=== PATIENT | female | born 1975 | race Caucasian/White ===

== ENCOUNTER 2017-04-18 22:07 | Emergency (ER) | payer SELFPAY ==
[2017-04-18 22:28] VITALS: TEMP 97.7; O2SAT 98
[2017-04-18] MEDS ORDERED: levETIRAcetam 250 MG TAB PO ONE (22:31)
[2017-04-18] MEDS ORDERED: PHENYTOIN SODIUM 100 MG CAP PO ONE (22:32)
--- NOTE | 2017-04-18 22:35 | ED.PDOC ---
History of Present Illness - General Chief Complaint: Neuro Symptoms/Deficits Stated Complaint: seizures today (out of meds), left breast wound Time Seen by Provider: 04/18/17 22:23 Source: patient, RN notes reviewed, Vital Signs reviewed Exam Limitations: no limitations - History of Present Illness Initial Comments: Patient comes in with c/o of being out of her seizure medications for ~1 week. She has had a few seizures in the past week but reports when she is on her medications she is seizure free. She also have a small, open wound on her L breast that has been there for several weeks and is leaking clear fluid. Timing/Duration: 1 week, episodic Severity: moderate Improving Factors: medication Worsening Factors: nothing Associated Symptoms: seizures Allergies/Adverse Reactions: Allergies NO KNOWN ALLERGY Allergy (Verified 04/18/17 22:28) Home Medications: Ambulatory Orders Phenytoin Sodium Extended 300 mg PO DAILY@0700 06/24/16 Phenytoin Sodium Extended 400 mg PO BEDTIME 06/24/16 Levetiracetam [Keppra] 1,000 mg PO BEDTIME 04/18/17 Levetiracetam [Keppra] 500 mg PO AC 04/18/17 Levetiracetam [Keppra] 500 mg PO BID #90 tab 04/18/17 Phenytoin Sodium Cap [Dilantin Cap] 100 mg PO BID #210 cap 04/18/17 Review of Systems - Review of Systems Constitutional: States: no symptoms reported EENTM: States: no symptoms reported Respiratory: States: no symptoms reported Cardiology: States: no symptoms reported Gastrointestinal/Abdominal: States: no symptoms reported Musculoskeletal: States: no symptoms reported Skin: States: see HPI Neurological: States: see HPI, seizure All other Systems: No Change from Baseline Past Medical History (General) - Patient Medical History Hx Seizures: Yes Hx Stroke: No Hx Dementia: No Hx Asthma: No Hx of COPD: No Hx Cardiac Disorders: No Hx Congestive Heart Failure: No Hx Pacemaker: No Hx Hypertension: Yes Hx Thyroid Disease: No Hx Diabetes: Yes Hx Gastroesophageal Reflux: No Hx Renal Disease: No Hx Cancer: No Hx of HIV: No Hx Hepatitis C: No Hx MRSA: No Surgical History: no surgical history - Vaccination History Hx Tetanus, Diphtheria Vaccination: No Hx Influenza Vaccination: No Hx Pneumococcal Vaccination: No Immunizations Up to Date: No - Social History Hx Tobacco Use: Yes Cigarettes Packs Per Day: 1 Hx Chewing Tobacco Use: No Hx Alcohol Use: No Hx Substance Use: No Hx Substance Use Treatment: No Hx Depression: Yes Feels Threatened In Home Enviroment: No Feels Threatened In a Relationship: No Hx Physical Abuse: No Hx Emotional Abuse: No Hx Suspected Abuse: No - Female History Patient : No Family Medical History - Family History Mother Family History: Unknown Living Status: Still Living Physical Exam - Physical Exam General Appearance: Alert, Comfortable, No apparent distress, Obese, Well Developed, Well Groomed, Well Hydrated, Well Nourished ENT Exam: pharynx normal Neck: non-tender, full range of motion, supple, normal inspection Respiratory: lungs clear, normal breath sounds, no respiratory distress, no accessory muscle use Cardiovascular/Chest: regular rate, rhythm, no gallop, no murmur 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 No tenderness, warmth or induration Comments: Vital Signs 04/18/17 22:24 Temperature 97.7 F Pulse Rate [ 106 H monitor] Respiratory 18 Rate Blood Pressure 169/99 [Left Arm] O2 Sat by Pulse 98 Oximetry Progress - Progress Progress: 04/18/17 22:37 Will give her usual PM doses of Dilantin and Kepra. Advised that breast wound is most likely taking a long time to heal due to her diabetes with she is not treating at this time. Wound shows no signs of infection. Recommended time and hot compresses. Encouraged to get a new Doctor to manage her health issues which are not being managed at this time. - EKG/XRAY/CT CT Ordered: No Departure - Departure Clinical Impression: Generalized seizure disorder Open wound of left breast without complication Qualifiers: Encounter type: initial encounter Qualified Code(s): S21.002A - Unspecified open wound of left breast, initial encounter Time of Disposition: 22:40 Disposition: Discharge to Home or Self Care Condition: Good Departure Forms: ED Discharge - Pt. Copy, Patient Portal Self Enrollment Instructions: DI for Seizure Disorder -- Adult Diet: resume usual diet Activity: increase activity as tolerated Prescriptions: Levetiracetam [Keppra] 500 mg PO BID #90 tab Phenytoin Sodium Cap [Dilantin Cap] 100 mg PO BID #210 cap Home Medications: Ambulatory Orders Phenytoin Sodium Extended 300 mg PO DAILY@0700 06/24/16 Phenytoin Sodium Extended 400 mg PO BEDTIME 06/24/16 Levetiracetam [Keppra] 1,000 mg PO BEDTIME 04/18/17 Levetiracetam [Keppra] 500 mg PO AC 04/18/17 Levetiracetam [Keppra] 500 mg PO BID #90 tab 04/18/17 Phenytoin Sodium Cap [Dilantin Cap] 100 mg PO BID #210 cap 04/18/17 Additional Instructions: Get new Doctor for management of health conditions Hot compresses to L breast 3-5X/day
[2017-04-18 22:51] VITALS: BP 152/92
== END 2017-04-18 22:51 | disposition home or self-care (01) ==
LOC: ER 22:07
DX: G40.909 Epilepsy, unspecified, not intractable, without status epilepticus (principal); S21.002A Unspecified open wound of left breast, initial encounter; E11.9 Type 2 diabetes mellitus without complications; F17.210 Nicotine dependence, cigarettes, uncomplicated; F32.9 Major depressive disorder, single episode, unspecified; I10 Essential (primary) hypertension; Z79.899 Other long term (current) drug therapy; X58.XXXA Exposure to other specified factors, initial encounter

== ENCOUNTER → 2017-04-26 | Outpatient (CLI) | payer SELFPAY | END | disposition home or self-care (01) | LOC: LAB.O 12:33 | PROVIDERS: ATTEND Nurse Practitioner Family | DX: R32 Unspecified urinary incontinence (principal); G40.909 Epilepsy, unspecified, not intractable, without status epilepticus; I10 Essential (primary) hypertension; E11.65 Type 2 diabetes mellitus with hyperglycemia; Z68.44 Body mass index [BMI] 60.0-69.9, adult; Z13.29 Encounter for screening for other suspected endocrine disorder ==

== ENCOUNTER → 2017-06-18 | Outpatient (CLI) | payer SELFPAY | END | disposition home or self-care (01) | LOC: YCFC.O 11:38 | PROVIDERS: ATTEND Nurse Practitioner Family | DX: R06.00 Dyspnea, unspecified (principal); R60.0 Localized edema; M25.50 Pain in unspecified joint ==

== ENCOUNTER 2017-06-29 18:07 | Emergency (ER) | payer SELFPAY ==
--- NOTE | 2017-06-29 19:21 | ED.PDOC ---
History of Present Illness - General Chief Complaint: Neuro Symptoms/Deficits Stated Complaint: Post seizures Time Seen by Provider: 06/29/17 18:50 Source: patient Exam Limitations: no limitations - History of Present Illness Initial Comments: Patient is a 42 year old F epileptic who presents reporting one grand mal seizure this morning and several petit mal seizures today. She says that she has not had any changes in her Keppra nor Dilantin doses. She said her last seizure was "within the last 60 days." No other complaints. Timing/Duration: changing over time Severity: moderate Improving Factors: nothing Worsening Factors: nothing Associated Symptoms: denies symptoms Allergies/Adverse Reactions: Allergies NO KNOWN ALLERGY Allergy (Verified 04/18/17 22:28) Home Medications: Ambulatory Orders Phenytoin Sodium Extended 300 mg PO DAILY@0700 06/24/16 Phenytoin Sodium Extended 400 mg PO BEDTIME 06/24/16 Levetiracetam [Keppra] 1,000 mg PO BEDTIME 04/18/17 Levetiracetam [Keppra] 500 mg PO AC 04/18/17 Levetiracetam [Keppra] 500 mg PO BID #90 tab 04/18/17 Phenytoin Sodium Cap Extended [Dilantin Cap] 100 mg PO BID #210 cap 04/18/17 Review of Systems - Review of Systems Constitutional: States: no symptoms reported EENTM: States: no symptoms reported Respiratory: States: no symptoms reported Cardiology: States: no symptoms reported Genitourinary: States: no symptoms reported Musculoskeletal: States: no symptoms reported Skin: States: no symptoms reported Neurological: States: see HPI Endocrine: States: no symptoms reported Hematologic/Lymphatic: States: no symptoms reported Past Medical History (General) - Patient Medical History Hx Seizures: Yes Hx Stroke: No Hx Dementia: No Hx Asthma: No Hx of COPD: No Hx Cardiac Disorders: No Hx Congestive Heart Failure: No Hx Pacemaker: No Hx Hypertension: Yes Hx Thyroid Disease: No Hx Diabetes: Yes Hx Gastroesophageal Reflux: No Hx Renal Disease: No Hx Cancer: No Hx of HIV: No Hx Hepatitis C: No Hx MRSA: No - Vaccination History Hx Tetanus, Diphtheria Vaccination: No Hx Influenza Vaccination: No Hx Pneumococcal Vaccination: No - Social History Hx Tobacco Use: Yes Hx Chewing Tobacco Use: No Hx Alcohol Use: No Hx Substance Use: No Hx Substance Use Treatment: No Hx Depression: Yes Hx Physical Abuse: No Hx Emotional Abuse: No Hx Suspected Abuse: No - Female History Patient : No Family Medical History - Family History Mother Family History: Unknown Living Status: Still Living Physical Exam - Physical Exam General Appearance: Alert Ears, Nose, Throat: normal ENT inspection Neck: non-tender, full range of motion, supple Respiratory: lungs clear Cardiovascular/Chest: normal peripheral pulses, regular rate, rhythm Gastrointestinal/Abdominal: normal bowel sounds, non tender, soft 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 She voiced understanding and agreement with this plan. Departure - Departure Clinical Impression: Seizure disorder Disposition: Discharge to Home or Self Care Condition: Good Departure Forms: ED Discharge - Pt. Copy, Patient Portal Self Enrollment Diet: resume usual diet Activity: increase activity as tolerated Referrals: Brooke Prado GEARMAN [Primary Care Provider] - 1-2 Weeks Home Medications: Ambulatory Orders Phenytoin Sodium Extended 300 mg PO DAILY@0700 06/24/16 Phenytoin Sodium Extended 400 mg PO BEDTIME 06/24/16 Levetiracetam [Keppra] 1,000 mg PO BEDTIME 04/18/17 Levetiracetam [Keppra] 500 mg PO AC 04/18/17 Levetiracetam [Keppra] 500 mg PO BID #90 tab 04/18/17 Phenytoin Sodium Cap Extended [Dilantin Cap] 100 mg PO BID #210 cap 04/18/17 Additional Instructions: Take two hundred milligrams of Dilantin when you get home. Two hours later, take two hundred more milligrams. Two hours after that, take 300 milligrams. Resume your normal dose tomorrow and see your doctor on Sunday. Do not drive a motor vehicle until you have been seizure free for at least three months.
[2017-06-29 19:58] VITALS: BP 127/76; TEMP 97.8; O2SAT 96
== END 2017-06-29 19:57 | disposition home or self-care (01) ==
LOC: ER 18:07
DX: G40.909 Epilepsy, unspecified, not intractable, without status epilepticus (principal); I10 Essential (primary) hypertension; E11.9 Type 2 diabetes mellitus without complications; Z87.891 Personal history of nicotine dependence; Z79.899 Other long term (current) drug therapy

== ENCOUNTER 2017-08-21 00:02 | Emergency (ER) | payer SELFPAY ==
[2017-08-21 00:16] VITALS: TEMP 98.6
--- NOTE | 2017-08-21 00:21 | ED.PDOC ---
History of Present Illness - General Chief Complaint: Respiratory Problem Stated Complaint: SOB, CP Time Seen by Provider: 08/21/17 00:15 Source: patient, RN notes reviewed, Vital Signs reviewed Exam Limitations: no limitations - History of Present Illness Timing/Duration: days Severity: moderate Activities at Onset: none Possible Cause: no prior episodes Improving Factors: nothing Worsening Factors: nothing Associated Symptoms: chest pain, cough, weakness, wheezing Allergies/Adverse Reactions: Allergies NO KNOWN ALLERGY Allergy (Verified 08/21/17 00:17) Home Medications: Ambulatory Orders Phenytoin Sodium Extended 300 mg PO DAILY@0700 06/24/16 Phenytoin Sodium Extended 400 mg PO BEDTIME 06/24/16 Levetiracetam [Keppra] 1,000 mg PO BEDTIME 04/18/17 Levetiracetam [Keppra] 500 mg PO AC 04/18/17 Levetiracetam [Keppra] 500 mg PO BID #90 tab 04/18/17 Phenytoin Sodium Cap Extended [Dilantin Cap] 100 mg PO BID #210 cap 04/18/17 Aspirin (Buffered) 325 mg [Bufferin 325 mg] 1 ea PO QDPC #30 tab 08/21/17 Cephalexin Monohydrate [Keflex] 2 capsule PO BID 5 Days #20 cap 08/21/17 Diltiazem HCl Extended Release [Diltiazem HCl ER] 180 mg PO DAILY 30 Days #30 cap 08/21/17 Review of Systems - Review of Systems Constitutional: States: chills, weakness EENTM: Denies: ear pain, nose pain, throat pain Respiratory: States: short of breath, wheezing. Denies: cough Cardiology: States: chest pain, palpitations Gastrointestinal/Abdominal: Denies: abdominal pain, constipation, diarrhea, nausea, vomiting Genitourinary: Denies: dysuria, frequency, hematuria Musculoskeletal: Denies: joint pain, joint swelling, muscle pain Skin: Denies: change in color, change in hair/nails Neurological: Denies: headache, numbness, paresthesia Endocrine: States: no symptoms reported Hematologic/Lymphatic: States: no symptoms reported Past Medical History (General) - Patient Medical History Hx Seizures: Yes Hx Stroke: No Hx Dementia: No Hx Asthma: No Hx of COPD: No Hx Cardiac Disorders: No Hx Congestive Heart Failure: No Hx Pacemaker: No Hx Hypertension: Yes Hx Thyroid Disease: No Hx Diabetes: Yes Hx Gastroesophageal Reflux: No Hx Renal Disease: No Hx Cancer: No Hx of HIV: No Hx Hepatitis C: No Hx MRSA: No - Vaccination History Hx Tetanus, Diphtheria Vaccination: No Hx Influenza Vaccination: No Hx Pneumococcal Vaccination: No - Social History Hx Tobacco Use: Yes Hx Chewing Tobacco Use: No Hx Alcohol Use: No Hx Substance Use: No Hx Substance Use Treatment: No Hx Depression: Yes Hx Physical Abuse: No Hx Emotional Abuse: No Hx Suspected Abuse: No - Female History Patient : No Family Medical History - Family History Mother Family History: Unknown Living Status: Still Living Physical Exam - Physical Exam General Appearance: Alert, Anxious Eyes, Ears, Nose, Throat Exam: normal ENT inspection, pharynx normal Neck: non-tender, full range of motion, supple Respiratory: respiratory distress, accessory muscle use, wheezing Cardiovascular/Chest: tachycardia, irregularly irregular Gastrointestinal/Abdominal: non tender, soft Extremity: normal range of motion, other - pain to left calf Neurologic: no motor/sensory deficits, alert Skin Exam: normal color, warm/dry Lymphatic: no adenopathy Progress - Progress Progress: 08/21/17 02:47 08/21/17 00:21 IV Care:Saline Lock per Protoc QSHIFT Telemetry ONCE URINE DRUG SCREEN, 7 ASSAY Stat Sodium Chloride 0.9% (Flush) [Saline Flush Syringe] 3 ml IV PRN PRN Oxygen Stat 08/21/17 00:22 Oxygen Delivery Assessment: QSHIFT Pulse Oximetry Assessment DAILY 08/21/17 00:30 EKG STAT 08/21/17 01:30 EKG STAT 08/21/17 02:30 UA [URINALYSIS] Stat 08/21/17 09:00 Pulse Ox Daily Laboratory Results WBC 7.0 K/mm3 (4.8-10.8) 08/21/17 00:21 RBC 4.11 M/mm3 (4.20-5.40) L 08/21/17 00:21 Hgb 13.2 gm/dL (12.0-16.0) 08/21/17 00:21 Hct 38.6 % (36.0-47.0) 08/21/17 00:21 MCV 94.0 fl (81.0-99.0) 08/21/17 00:21 MCH 32.1 pg (27.0-31.0) H 08/21/17 00:21 MCHC 34.1 g/dL (33.0-37.0) 08/21/17 00: RDW 14.0 % (11.5-14.5) 08/21/17 00:21 Plt Count 224 K/mm3 (130-400) 08/21/17 00:21 MPV 9.0 fl (7.40-10.4) 08/21/17 00:21 Absolute Neuts (auto) 3.60 K/uL (1.8-6.8) 08/21/17 00:21 Absolute Lymphs (auto) 2.90 K/uL (1.0-3.4) 08/21/17 00:21 Absolute Monos (auto) 0.40 K/uL (0.2-0.8) 08/21/17 00:21 Absolute Eos (auto) 0.00 K/uL (0.0-0.4) 08/21/17 00:21 Absolute Basos (auto) 0.00 K/uL (0.0-0.1) 08/21/17 00:21 Neutrophils % 51.0 % (42.0-78.0) 08/21/17 00:21 Lymphocytes % 41.3 % (20.0-50.0) 08/21/17 00:21 Monocytes % 6.3 % (2.0-9.0) 08/21/17 00:21 Eosinophils % 0.7 % (1.0-5.0) L 08/21/17 00: Basophils % 0.7 % (0.0-2.0) 08/21/17 00:21 PT 11.8 SECONDS (9.4-12.5) 08/21/17 00:21 INR 1.040 08/21/17 00:21 PTT (SP) 28.2 SECONDS (25.1-36.5) 08/21/17 00:21 Sodium 138 mmol/L (135-145) 08/21/17 00:21 Potassium 4.4 mmol/L (3.6-5.0) 08/21/17 00:21 Chloride 106 mmol/L (101-111) 08/21/17 00:21 Carbon Dioxide 23 mmol/L (21-31) 08/21/17 00:21 Anion Gap 13.4 (12-18) 08/21/17 00:21 BUN 20 mg/dL (7-18) H 08/21/17 00:21 Creatinine 0.94 mg/dL (0.6-1.3) 08/21/17 00:21 BUN/Creatinine Ratio 21.3 (10-20) H 08/21/17 00:21 Random Glucose 115 mg/dL (70-105) H 08/21/17 00:21 Serum Osmolality 279.2 mOsm/L (275-295) 08/21/17 00:21 Calcium 8.7 mg/dL (8.4-10.2) 08/21/17 00:21 Magnesium 2.0 mg/dL (1.8-2.5) 08/21/17 00:21 Total Bilirubin 0.3 mg/dL (0.2-1.0) 08/21/17 00:21 AST 24 IU/L (10-42) 08/21/17 00:21 ALT 27 IU/L (10-60) 08/21/17 00:21 Alkaline Phosphatase 71 IU/L (42-121) 08/21/17 00:21 Creatine Kinase 103 IU/L (26-140) 08/21/17 00:21 CK-MB (CK-2) 2.4 ng/mL (0.0-4.4) 08/21/17 00: CK-MB (CK-2) % Not Reportable 08/21/17:21 Troponin I < 0.02 ng/mL (0.01-0.05) 08/21/17 00: B-Natriuretic Peptide 84.4 pg/ml (0-100) 08/21/17 00:21 Serum Total Protein 7.3 gm/dL (6.4-8.2) 08/21/17 00:21 Albumin 3.8 g/dl (3.2-5.5) 08/21/17 00:21 Globulin 3.5 gm/dL (2.3-3.5) 08/21/17 00:21 Albumin/Globulin Ratio 1.1 (1.1-1.9) 08/21/17 00:21 08/21/17 02:47 on repeat exam patient is resolved, currently has no symptoms, no long wheezing after rate control. pt subsequently controverted after 5 mg Cardizem. Pt wants to go home and not stay for obs in the hospital. Discussed case with Dr. Verde. He recommended repeat cardiac enzymes, aspirin daily, 40 units SQ lovenox, diltiazem daily at home and close outpatient f/u given symptom resolve. Discussed importance of evaluation by PCP in the AM for further workup as to new diagnosis of atrial flutter and possible tap and die maker technician referral. Discussed these recommendations with patient and expressed the improtance of close f/u and taking home medications and weight loss 08/21/17 04:14 Laboratory Last Values WBC 7.0 K/mm3 (4.8-10.8) 08/21/17 00:21 RBC 4.11 M/mm3 (4.20-5.40) L 08/21/17 00:21 Hgb 13.2 gm/dL (12.0-16.0) 08/21/17 00:21 Hct 38.6 % (36.0-47.0) 08/21/17 00:21 MCV 94.0 fl (81.0-99.0) 08/21/17 00:21 MCH 32.1 pg (27.0-31.0) H 08/21/17 00:21 MCHC 34.1 g/dL (33.0-37.0) 08/21/17 00:21 RDW 14.0 % (11.5-14.5) 08/21/17 00:21 Plt Count 224 K/mm3 (130-400) 08/21/17 00:21 MPV 9.0 fl (7.40-10.4) 08/21/17 00:21 Absolute Neuts (auto) 3.60 K/uL (1.8-6.8) 08/21/17 00:21 Absolute Lymphs (auto) 2.90 K/uL (1.0-3.4) 08/21/17 00:21 Absolute Monos (auto) 0.40 K/uL (0.2-0.8) 08/21/17 00:21 Absolute Eos (auto) 0.00 K/uL (0.0-0.4) 08/21/17 00:21 Absolute Basos (auto) 0.00 K/uL (0.0-0.1) 08/21/17 00:21 Neutrophils % 51.0 % (42.0-78.0) 08/21/17 00: Lymphocytes % 41.3 % (20.0-50.0) 08/21/17 00: Monocytes % 6.3 % (2.0-9.0) 08/21/17 00: Eosinophils % 0.7 % (1.0-5.0) L 08/21/17 00: Basophils % 0.7 % (0.0-2.0) 08/21/17: PT 11.8 SECONDS (9.4-12.5) 08/21/17: INR 1.040 08/21/17: PTT (SP) 28.2 SECONDS (25.1-36.5) 08/21/17: Sodium 138 mmol/L (135-145) 08/21/17 00: Potassium 4.4 mmol/L (3.6-5.0) 08/21/17: Chloride 106 mmol/L (101-111) 08/21/17: Carbon Dioxide 23 mmol/L (21-31) 08/21/17 00: Anion Gap 13.4 (12-18) 08/21/17 00: BUN 20 mg/dL (7-18) H 08/21/17 00: Creatinine 0.94 mg/dL (0.6-1.3) 08/21/17 00: BUN/Creatinine Ratio 21.3 (10-20) H 08/21/17 00: Random Glucose 115 mg/dL (70-105) H 08/21/17 00: Serum Osmolality 279.2 mOsm/L (275-295) 08/21/17 00: Calcium 8.7 mg/dL (8.4-10.2) 08/21/17: Magnesium 2.0 mg/dL (1.8-2.5) 08/21/17: Total Bilirubin 0.3 mg/dL (0.2-1.0) 08/21/17 00:21 AST 24 IU/L (10-42) 08/21/17 00: ALT 27 IU/L (10-60) 08/21/17 00: Alkaline Phosphatase 71 IU/L (42-121) 08/21/17 00:21 Creatine Kinase 94 IU/L (26-140) 08/21/17 02:59 CK-MB (CK-2) 2.1 ng/mL (0.0-4.4) 08/21/17 02:59 CK-MB (CK-2) % Not Reportable 08/21/17 02:59 Troponin I < 0.02 ng/mL (0.01-0.05) 08/21/17 02:59 B-Natriuretic Peptide 84.4 pg/ml (0-100) 08/21/17 00:21 Serum Total Protein 7.3 gm/dL (6.4-8.2) 08/21/17 00:21 Albumin 3.8 g/dl (3.2-5.5) 08/21/17 00:21 Globulin 3.5 gm/dL (2.3-3.5) 08/21/17 00:21 Albumin/Globulin Ratio 1.1 (1.1-1.9) 08/21/17 00:21 TSH 3.45 uIU/mL (0.34-5.60) 08/21/17 03:04 Urine Color Yellow (Yellow) 08/21/17 03:01 Urine Appearance Clear (Clear) 08/21/17 03:01 Urine pH 5.5 (4.5-7.8) 08/21/17 03:01 Ur Specific [place] 1.010 (1.005-1.030) 08/21/17 03:01 Urine Protein Negative mg/dL 08/21/17 03:01 Urine Glucose (UA) Negative mg/dL (Negative) 08/21/17 03:01 Urine Ketones Negative mg/dL (NEGATIVE) 08/21/17 03:01 Urine Blood Large (Negative) H 08/21/17 03:01 Urine Nitrite Positive H 08/21/17 03:01 Urine Bilirubin Negative (NEGATIVE) 08/21/17 03:01 Urine Urobilinogen 0.2 mg/dL (0.2-1.0) 08/21/17 03:01 Ur Leukocyte Esterase Negative (Negative) 08/21/17 03:01 Urine RBC 20-30 /hpf H 08/21/17 03:01 Urine WBC 3-5 /hpf H 08/21/17 03:01 Ur Epithelial Cells 10-20 /hpf 08/21/17 03:01 Urine Bacteria 2+ H 08/21/17 03:01 Urine Opiates Screen Negative ng/mL (2000) 08/21/17 00:21 Urine Barbiturates Negative ng/mL (200) 08/21/17 00:21 Ur Phencyclidine Scrn Negative ng/mL (25) 08/21/17 00:21 U Amphetamin/Meth Scrn Negative ng/mL (1000) 08/21/17 00:21 U Benzodiazepines Scrn Negative ng/mL (200) 08/21/17 00:21 U Cocaine Metab Screen Negative ng/mL (300) 08/21/17 00:21 U Cannabinoids Screen Negative ng/mL (50) 08/21/17 00:21 - EKG/XRAY/CT EKG: Flutter, RVR - rate 117, pr N/A, qrs 118, qtc 504 - Additional EKG/XRAY/Consults EKG #2: Sinus, Changed from - sinus rhythm with prolonged qt; rate 99, pr 206, qrs 102, qtc 482 Procedures - Additional Procedures Progress: general proceedure: peripheral IV start: using catheter over needle technique, placed 18 g on first attempt using ultrasound guidance. secured in place Departure - Departure Clinical Impression: Atrial flutter with rapid ventricular response, Shortness of breath at rest, Prolonged Q-T interval on ECG, Urinary tract bacterial infections Disposition: Discharge to Home or Self Care Condition: Excellent Departure Forms: ED Discharge - Pt. Copy, Patient Portal Self Enrollment Diet: low salt diet Activity: increase activity as tolerated Referrals: Brooke Prado, CLINICAL RESEARCH DIRECTOR [Primary Care Provider] - 1-2 Days (new onset Aflutter with rvr, converted in ED) Prescriptions: Aspirin (Buffered) 325 mg [Bufferin 325 mg] 1 ea PO QDPC #30 tab Cephalexin Monohydrate [Keflex] 2 capsule PO BID 5 Days #20 cap Diltiazem HCl Extended Release [Diltiazem HCl ER] 180 mg PO DAILY 30 Days #30 cap Home Medications: Ambulatory Orders Phenytoin Sodium Extended 300 mg PO DAILY@0700 06/24/16 Phenytoin Sodium Extended 400 mg PO BEDTIME 06/24/16 Levetiracetam [Keppra] 1,000 mg PO BEDTIME 04/18/17 Levetiracetam [Keppra] 500 mg PO AC 04/18/17 Levetiracetam [Keppra] 500 mg PO BID #90 tab 04/18/17 Phenytoin Sodium Cap Extended [Dilantin Cap] 100 mg PO BID #210 cap 04/18/17 Aspirin (Buffered) 325 mg [Bufferin 325 mg] 1 ea PO QDPC #30 tab 08/21/17 Cephalexin Monohydrate [Keflex] 2 capsule PO BID 5 Days #20 cap 08/21/17 Diltiazem HCl Extended Release [Diltiazem HCl ER] 180 mg PO DAILY 30 Days #30 cap 08/21/17 Critical Care Note - Critical Care Note Total Time (mins): 40 Comments: aflutter rvr, cardiac rule out, advanced imaging, consultations, reassessments; need for IV access placement
[2017-08-21] MEDS ORDERED: diltiaZEM DRIP 125 MG in SODIUM CHLORIDE 0.9% 100ML 100 ML IVPB SCH (00:30)
[2017-08-21] MEDS ORDERED: SODIUM CHLORIDE 0.9% 100ML 0 ML IVPB ONE (00:34)
[2017-08-21] MEDS ORDERED: diltiaZEM DRIP 125 MG/25 ML VIAL IVPB ONE (00:34)
[2017-08-21] MEDS: ASPIRIN (CHEWABLE) 81 MG TAB PO ONE (00:39)
[2017-08-21] MEDS: SODIUM CHLORIDE 0.9% (FLUSH) 10 ML SYG IV PRN (00:40)
[2017-08-21] MEDS: IPRATROPIUM/ALBUTEROL 3 ML VIAL NEB ONE (00:46)
--- NOTE | 2017-08-21 02:14 | CT ---
EXAM: CT chest angiogram with contrast. INDICATION: Chest pain. TECHNIQUE: Contiguous axial CT images of the chest. Intravenous contrast: Present. Protocol: Pulmonary embolus (PE) protocol angiogram. Reformats: MIPs and MPRs created and utilized. DLP 564 mGy-cm. This exam was performed according to our departmental dose-optimization program, which includes automated exposure control, adjustment of the mA and/or kV according to patient size and/or use of iterative reconstruction technique. Note: LV=left ventricle. RV=right ventricle. COMPARISON: None. FINDINGS: Upper abdomen: Partially imaged. Thoracic aorta: Unremarkable. Heart: No right atrial thrombus. RV/LV ratio: Within normal limits. Pulmonary arteries: Technical: Adequate opacification to the level of the segmental vessels. Pulmonary embolus: No low-density filling defect to suggest acute PE. Overall embolic burden: None. Mediastinum: No pathologic sized middle mediastinal lymphadenopathy. Tracheobronchial tree: Unremarkable. Lungs: Lobar consolidation: Negative. Pleural effusion: Negative. Pneumothorax: Negative. Other: There is a 7 mm nodule within the left lower lobe (axial image 46). Bones: Unremarkable. IMPRESSION: 1. No CT evidence of acute PE. 2. 7 mm nodule within the left lower lobe. Recommend follow-up CT scan in 6 months to assess for stability. Electronically signed by: Liu Garcia MD 08/21/2017 2:13 AM TAX COLLECTION COORDINATOR Workstation: [id number]
[2017-08-21] MEDS: diltiaZEM HCL CD 180 MG CAP PO ONE (02:37)
[2017-08-21] MEDS: ENOXAPARIN SODIUM 40 MG/0.4 ML SYG SUBCU ONE (02:38)
[2017-08-21] MEDS: ASPIRIN (ENTERIC COATED) 325 MG TAB PO ONE (03:01)
[2017-08-21] MEDS: PHENYTOIN SODIUM CAP EXTENDED 100 MG CAP PO ONE (03:42)
[2017-08-21] MEDS: levETIRAcetam 250 MG TAB PO ONE (03:42)
[2017-08-21] MEDS: CEPHALEXIN MONOHYDRATE 250 MG CAP PO ONE (04:14)
[2017-08-21 04:30] VITALS: BP 134/71; O2SAT 96
== END 2017-08-21 04:31 | disposition home or self-care (01) ==
LOC: ER 00:02
DX: I48.92 Unspecified atrial flutter (principal); N39.0 Urinary tract infection, site not specified; I45.81 Long QT syndrome; I10 Essential (primary) hypertension; E11.9 Type 2 diabetes mellitus without complications; Z79.82 Long term (current) use of aspirin; Z79.899 Other long term (current) drug therapy

== ENCOUNTER 2017-09-16 18:26 | Emergency (ER) | payer SELFPAY ==
[2017-09-16] MEDS ORDERED: IPRATROPIUM BROMIDE NEBS 0.5 MG/2.5 ML VIAL NEB ONE (18:46)
[2017-09-16] MEDS ORDERED: LEVALBUTEROL NEBS 1.25 MG/3 ML VIAL NEB ONE (18:46)
[2017-09-16] MEDS ORDERED: predniSONE 20 MG TAB PO ONE (18:46)
[2017-09-16] MEDS ORDERED: MONTELUKAST 10 MG TAB PO ONE (18:47)
--- NOTE | 2017-09-16 19:05 | RAD ---
EXAM DESCRIPTION: Chest,2 Views CLINICAL HISTORY: 42 years Female, sob COMPARISON: June 18, 2017 TECHNIQUE: PA lateral views FINDINGS: Cardiac silhouette remains moderately enlarged. Mediastinum is within normal limits. No infiltrates have developed. No pleural effusions. Intact bony thorax. IMPRESSION: No significant changes. No infiltrates Electronically signed by: Arpan Ch 09/16/2017 7:04 PM AERONAUTICAL ENGINEER
--- NOTE | 2017-09-16 19:33 | ED.PDOC ---
History of Present Illness - General Chief Complaint: Respiratory Problem Stated Complaint: difficulty breathing Time Seen by Provider: 09/16/17 18:36 Source: patient Exam Limitations: no limitations - History of Present Illness Initial Comments: The patient is a 42-year-old female with a history of asthma presenting secondary to shortness of breath last day or 2. The patient was seen earlier this week for atrial flutter with rapid ventricular rate. She is concerned that is come back. It has not. She is in a normal sinus rhythm. She does appear to be in a COPD or asthma exacerbation. She doesn't does have asthma and she does smoke. No fevers. No sore throat. No runny nose. No edema. No chest pain. She does mainly feel short of breath. Timing/Duration: 24 hours Severity: moderate Improving Factors: nothing Worsening Factors: nothing Associated Symptoms: cough, malaise, shortness of breath Allergies/Adverse Reactions: Allergies NO KNOWN ALLERGY Allergy (Verified 08/21/17 00:17) Home Medications: Ambulatory Orders Phenytoin Sodium Extended 400 mg PO BID 06/24/16 Levetiracetam [Keppra] 1,000 mg PO DAILY 04/18/17 Levetiracetam [Keppra] 500 mg PO BEDTIME 04/18/17 Diltiazem HCl Extended Release [Diltiazem HCl ER] 180 mg PO DAILY 30 Days #30 cap 08/21/17 Albuterol Inhaler [Ventolin Hfa Inhaler] 1 puff INH PRN 09/16/17 Aspirin [Tashi Low Dose] 81 mg PO DAILY 09/16/17 Cephalexin Monohydrate [Keflex] 500 mg PO Q8H #20 cap 09/16/17 Meloxicam 7.5 mg PO BID 09/16/17 predniSONE [Prednisone] 20 mg PO DAILY #5 tab 09/16/17 Review of Systems - Review of Systems Constitutional: States: malaise EENTM: States: no symptoms reported Respiratory: States: cough, short of breath, wheezing Cardiology: States: no symptoms reported Gastrointestinal/Abdominal: States: no symptoms reported Genitourinary: States: no symptoms reported Musculoskeletal: States: no symptoms reported Skin: States: no symptoms reported Neurological: States: no symptoms reported Endocrine: States: no symptoms reported All other Systems: No Change from Baseline Past Medical History (General) - Patient Medical History Hx Seizures: Yes Hx Stroke: No Hx Dementia: No Hx Asthma: No Hx of COPD: No Hx Cardiac Disorders: Yes - Atrial flutter Hx Congestive Heart Failure: No Hx Pacemaker: No Hx Hypertension: Yes Hx Thyroid Disease: No Hx Diabetes: Yes Hx Gastroesophageal Reflux: No Hx Renal Disease: No Hx Cancer: No Hx of HIV: No Hx Hepatitis C: No Hx MRSA: No Surgical History: no surgical history - Vaccination History Hx Tetanus, Diphtheria Vaccination: No Hx Influenza Vaccination: No Hx Pneumococcal Vaccination: No - Social History Hx Tobacco Use: Yes Hx Chewing Tobacco Use: No Hx Alcohol Use: No Hx Substance Use: No Hx Substance Use Treatment: No Hx Depression: Yes Hx Physical Abuse: No Hx Emotional Abuse: No Hx Suspected Abuse: No - Female History Patient is a Female of Child Bearing Age (10 -59 yrs old): Yes Patient : No Family Medical History - Family History Mother Family History: Unknown Living Status: Still Living Physical Exam - Physical Exam General Appearance: Alert, Anxious, No apparent distress Eye Exam: bilateral normal Ears, Nose, Throat: hearing grossly normal, normal pharynx, nasal congestion Neck: full range of motion, supple Respiratory: chest non-tender, decreased breath sounds, accessory muscle use - mild to moderate, rhonchi, wheezing Cardiovascular/Chest: normal peripheral pulses, regular rate, rhythm, no edema Peripheral Pulses: radial,right: 2+, radial,left: 2+, dorsalis pedis,right: 2+, dorsalis pedis,left: 2+ Gastrointestinal/Abdominal: non tender - orbidly obese, soft Rectal Exam: deferred Back Exam: normal inspection, no CVA tenderness Extremity: non-tender, normal inspection, no calf tenderness, normal capillary refill 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 The patient was given a dose of prednisone as well as a breathing treatment and some Singulair. The patient is going to be placed on Keflex 3 times daily for the next 7 days. Additionally she needs to take 2 puffs of her inhaler every couple of hours throughout the night. She'll be written for prednisone daily for the next 5 days. She must stop smoking. She needs to follow-up with her primary care doctor in a couple of days for reevaluation. She does need to keep follow-up with cardiology as previously determined for her episode of atrial flutter.eR warnings were given for any worsening. - Results/Orders Results/Orders: chest x-ray shows cardiomegaly but no infiltrates. he patient is in a normal sinus rhythm by auscultation. Departure - Departure Clinical Impression: COPD with exacerbation Disposition: Discharge to Home or Self Care Condition: Fair Departure Forms: ED Discharge - Pt. Copy, Patient Portal Self Enrollment Instructions: DI for Chronic Obstructive Pulmonary Disease Diet: diabetic diet Activity: increase activity as tolerated Prescriptions: Cephalexin Monohydrate [Keflex] 500 mg PO Q8H #20 cap predniSONE [Prednisone] 20 mg PO DAILY #5 tab Home Medications: Ambulatory Orders Phenytoin Sodium Extended 400 mg PO BID 06/24/16 Levetiracetam [Keppra] 1,000 mg PO DAILY 04/18/17 Levetiracetam [Keppra] 500 mg PO BEDTIME 04/18/17 Diltiazem HCl Extended Release [Diltiazem HCl ER] 180 mg PO DAILY 30 Days #30 cap 08/21/17 Albuterol Inhaler [Ventolin Hfa Inhaler] 1 puff INH PRN 09/16/17 Aspirin [Tashi Low Dose] 81 mg PO DAILY 09/16/17 Cephalexin Monohydrate [Keflex] 500 mg PO Q8H #20 cap 09/16/17 Meloxicam 7.5 mg PO BID 09/16/17 predniSONE [Prednisone] 20 mg PO DAILY #5 tab 09/16/17 Additional Instructions: the patient's a 42-year-old female presenting to the emergency room secondary to what is essentially a COPD exacerbation with reactive airway. The patient was given a dose of prednisone as well as a breathing treatment and some Singulair. The patient is going to be placed on Keflex 3 times daily for the next 7 days. Additionally she needs to take 2 puffs of her inhaler every couple of hours throughout the night. She'll be written for prednisone daily for the next 5 days. She must stop smoking. She needs to follow-up with her primary care doctor in a couple of days for reevaluation. She does need to keep follow-up with cardiology as previously determined for her episode of atrial flutter. she should continue her Cardizem at current doses as it does appear to be working. eR warnings were given for any worsening.
[2017-09-16 19:52] VITALS: BP 116/78; TEMP 98.2; O2SAT 95
== END 2017-09-16 19:52 | disposition home or self-care (01) ==
LOC: ER 18:26
DX: J44.1 Chronic obstructive pulmonary disease with (acute) exacerbation (principal); I10 Essential (primary) hypertension; E11.9 Type 2 diabetes mellitus without complications; I48.92 Unspecified atrial flutter; Z87.891 Personal history of nicotine dependence
CPT/HCPCS: 71020; 87502; 94640; J7512; J7614; J7644

== ENCOUNTER 2019-10-23 09:42 | Emergency (ER) | payer SELFPAY ==
[2019-10-23] MEDS ORDERED: IPRATROPIUM BROMIDE NEBS 0.5 MG/2.5 ML VIAL NEB ONE (09:57)
[2019-10-23] MEDS ORDERED: LEVALBUTEROL NEBS 1.25 MG/3 ML VIAL NEB ONE (09:57)
--- NOTE | 2019-10-23 10:32 | ED.PDOC ---
History of Present Illness - General Time Seen by Provider: 10/23/19 09:49 Source: patient Exam Limitations: no limitations - History of Present Illness Initial Comments: The patient is a 44-year-old female presenting to the emergency room secondary to a feeling of generalized weakness and tremulousness and mild shortness of breath. No fever. The patient was started on Augmentin the day before yesterday for a mild mastitis on the right. Evaluation of the site today shows no evidence of any abscess formation and no significant tenderness or erythema. The patient does have a history of COPD and asthma. She does have a breathing treatment but does not take them today. No fever. The patient does have wheezes and rhonchi throughout as well as decreased air movement. She is not hypoxic. The patient is morbidly obese. She does have +1 edema to the lower extremities which is chronic for her. No syncope or near syncope. She has had a runny nose and a cough. Her niece who is with her has had similar sym ptoms. Mild sore throat. No chest pain. No palpitations. She has had atrial fibrillation in the past but is no longer on medications for that. She is not in atrial fibrillation currently. The patient does have chronic hoarseness since her surgery about a year ago. It has not changed. Timing/Duration: 24 hours Severity: moderate Improving Factors: nothing Worsening Factors: nothing Associated Symptoms: cough, loss of appetite, malaise, shortness of breath Allergies/Adverse Reactions: Allergies Medical tape Allergy (Uncoded 10/23/19 09:58) Other Causes blisters Home Medications: Ambulatory Orders Phenytoin Sodium Extended 400 mg PO BID 06/24/16 Levetiracetam [Keppra] 1,000 mg PO DAILY 04/18/17 Levetiracetam [Keppra] 500 mg PO BEDTIME 04/18/17 Diltiazem HCl Extended Release [Diltiazem HCl ER] 180 mg PO DAILY 30 Days #30 cap 08/21/17 Albuterol Inhaler [Ventolin Hfa Inhaler] 1 puff INH PRN 09/16/17 Aspirin [Tashi Low Dose] 81 mg PO DAILY 09/16/17 Meloxicam 7.5 mg PO BID 09/16/17 predniSONE [Prednisone] 20 mg PO DAILY #3 tab 10/23/19 Review of Systems - Review of Systems Constitutional: States: malaise, weakness - Generalized EENTM: States: nose congestion, throat pain - Mild Respiratory: States: cough, short of breath, wheezing Cardiology: States: see HPI Gastrointestinal/Abdominal: States: no symptoms reported Genitourinary: States: no symptoms reported Musculoskeletal: States: no symptoms reported Neurological: States: anxiety Endocrine: States: no symptoms reported All other Systems: No Change from Baseline Past Medical History (General) - Patient Medical History Hx Seizures: Yes Hx Stroke: No Hx Dementia: No Hx Asthma: Yes Hx of COPD: Yes Hx Cardiac Disorders: Yes - Hx a flutter Hx Congestive Heart Failure: No Hx Pacemaker: No Hx Hypertension: Yes Hx Thyroid Disease: Yes Hx Diabetes: No Hx Gastroesophageal Reflux: No Hx Renal Disease: No Hx Cancer: No Hx of HIV: No Hx Hepatitis C: No Hx MRSA: No Surgical History: other - Vaccination History Hx Tetanus, Diphtheria Vaccination: No Hx Influenza Vaccination: No Hx Pneumococcal Vaccination: No - Social History Hx Tobacco Use: Yes Hx Chewing Tobacco Use: No Hx Alcohol Use: No Hx Substance Use: No Hx Substance Use Treatment: No Hx Depression: Yes Hx Physical Abuse: No Hx Emotional Abuse: No Hx Suspected Abuse: No - Female History Patient is a Female of Child Bearing Age (10 -59 yrs old): Yes Patient : No Family Medical History - Family History Mother Family History: Unknown Living Status: Still Living Physical Exam - Physical Exam General Appearance: Alert, No apparent distress Eye Exam: bilateral normal Ears, Nose, Throat: hearing grossly normal, nasal congestion, pharyngeal erythema Neck: full range of motion, supple Respiratory: no respiratory distress, no accessory muscle use, rhonchi, wheezing Cardiovascular/Chest: normal peripheral pulses, regular rate, rhythm Peripheral Pulses: radial,right: 2+, radial,left: 2+ Gastrointestinal/Abdominal: non tender - Morbidly obese, soft Rectal Exam: deferred Back Exam: no CVA tenderness, no vertebral tenderness Extremity: normal range of motion, no calf tenderness, normal capillary refill, pedal edema - +1 bilaterally chronic 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 There are no focal neurological changes and no hypoxia. The patient has responded positively to a breathing treatment. Given her history of reactive airway disease I would encourage her to use her breathing treatments every 6 hours for the next 3 to 4 days. She does have a viral upper respiratory tract infection that is likely the trigger. Obviously she needs to not smoke. She can continue the Augmentin that is being used for mastitis which should help prevent any bacterial infection in the lungs. In addition she is going to be written for another 3 days of oral prednisone. She been given 1 dose here today. This should help with reactive airway component. I have discussed with the patient the deleterious effects of being overweight. The patient is going to try to start doing a diet. She does need to follow-up with her primary care doctor for this. I do not see any overt evidence of CHF in the patient at this time, however she is at significant increased risk in the long- term for it if she does not achieve better weight control. Blood pressure was mildly elevated here, but possibly a stress reaction. It does need to be followed up with her primary care doctor. She needs to follow back up with her primary care doctor within the coming week. ER warnings were given for any worsening. Additionally, the Augmentin may be contributing to her feeling poorly. She should should try and take it with a little bit of food. carmelo [email or web address] [phone] - Results/Orders Results/Orders: The patient has tested negative for influenza. 2 view chest x-ray shows lung zuniga that appear clear. No effusions or pulmonary congestion. She does have mild cardiomegaly. EKG shows normal sinus rhythm at 85 bpm. Borderline prolonged QT interval. Borderline R wave progression. Early right bundle branch block. No ST segment or T wave changes indicative of acute ischemia. Departure - Departure Clinical Impression: Viral upper respiratory illness, Morbid obesity Asthma exacerbation Qualifiers: Asthma severity: moderate Asthma persistence: persistent Qualified Code(s): J45.41 - Moderate persistent asthma with (acute) exacerbation Disposition: Discharge to Home or Self Care Condition: Fair Instructions: Health Risks of Obesity, Viral Upper Respiratory Infection, Adult (DC), Asthma, Adult (DC) Diet: low fat, low cholesterol Activity: increase activity as tolerated Referrals: AUDREY WHITFIELD,STEPH Jefferson [Primary Care Provider] - 1-2 Weeks Prescriptions: predniSONE [Prednisone] 20 mg PO DAILY #3 tab Home Medications: Ambulatory Orders Phenytoin Sodium Extended 400 mg PO BID 06/24/16 Levetiracetam [Keppra] 1,000 mg PO DAILY 04/18/17 Levetiracetam [Keppra] 500 mg PO BEDTIME 04/18/17 Diltiazem HCl Extended Release [Diltiazem HCl ER] 180 mg PO DAILY 30 Days #30 cap 08/21/17 Albuterol Inhaler [Ventolin Hfa Inhaler] 1 puff INH PRN 09/16/17 Aspirin [Tashi Low Dose] 81 mg PO DAILY 09/16/17 Meloxicam 7.5 mg PO BID 09/16/17 predniSONE [Prednisone] 20 mg PO DAILY #3 tab 10/23/19 Additional Instructions: The patient is a 44-year-old female presented to the emergency room secondary mostly to mild shortness of breath and a feeling of generalized weakness this morning. There are no focal neurological changes and no hypoxia. The patient has responded positively to a breathing treatment. Given her history of reactive airway disease I would encourage her to use her breathing treatments every 6 hours for the next 3 to 4 days. She does have a viral upper respiratory tract infection that is likely the trigger. Obviously she needs to not smoke. She can continue the Augmentin that is being used for mastitis which should help prevent any bacterial infection in the lungs. In addition she is going to be written for another 3 days of oral prednisone. She been given 1 dose here today. This should help with reactive airway component. I have discussed with the patient the deleterious effects of being overweight. The patient is going to try to start doing a diet. She does need to follow-up with her primary care doctor for this. I do not see any overt evidence of CHF in the patient at this time, however she is at significant increased risk in the long- term for it if she does not achieve better weight control. Blood pressure was mildly elevated here, but possibly a stress reaction. It does need to be followed up with her primary care doctor. She needs to follow back up with her primary care doctor within the coming week. ER warnings were given for any worsening. Additionally, the Augmentin may be contributing to her feeling poorly. She should should try and take it with a little bit of food.
--- NOTE | 2019-10-23 10:53 | RAD ---
EXAM DESCRIPTION: Chest,2 Views CLINICAL HISTORY: sob, tremulous COMPARISON: Previous study September 16, 2017 TECHNIQUE: PA/lateral FINDINGS: There is no acute appearing cardiac or pulmonary abnormality. Heart size is large with normal pulmonary vascularity. No pleural effusion or pneumothorax. Lungs are clear with no consolidating infiltrate. Lateral view shows intact sternum and T-spine. IMPRESSION: No acute process is identified in the chest. Electronically signed by: Chris Camacho MD 10/23/2019 10:51 AM [facility]
[2019-10-23] MEDS ORDERED: predniSONE 20 MG TAB PO ONE (11:00)
[2019-10-23 11:47] VITALS: BP 139/94; TEMP 98; O2SAT 96
== END 2019-10-23 11:35 | disposition home or self-care (01) ==
LOC: ER 09:42
DX: J06.9 Acute upper respiratory infection, unspecified (principal); J45.41 Moderate persistent asthma with (acute) exacerbation; E66.01 Morbid (severe) obesity due to excess calories; I45.10 Unspecified right bundle-branch block; J44.9 Chronic obstructive pulmonary disease, unspecified; F32.9 Major depressive disorder, single episode, unspecified; R60.0 Localized edema; R56.9 Unspecified convulsions; I10 Essential (primary) hypertension; E07.9 Disorder of thyroid, unspecified; Z79.899 Other long term (current) drug therapy; Z79.82 Long term (current) use of aspirin; Z87.891 Personal history of nicotine dependence; Z68.44 Body mass index [BMI] 60.0-69.9, adult
CPT/HCPCS: 71046; 87502; 93005; 94640; J7512; J7614; J7644

== ENCOUNTER 2020-08-03 11:07 | Emergency (ER) | payer SELFPAY ==
[2020-08-03 11:21] VITALS: TEMP 97.5
[2020-08-03] MEDS ORDERED: HYDROmorphone HCL INJ 2 MG/ML VIAL IV ONE (12:03)
[2020-08-03] MEDS ORDERED: ONDANSETRON INJ 4 MG/2 ML VIAL IV ONE (12:04)
[2020-08-03] MEDS ORDERED: ONDANSETRON INJ 4 MG/2 ML VIAL ONE (12:10)
[2020-08-03] MEDS ORDERED: SODIUM CHLORIDE 0.9% 1000ML 1,000 ML ONE (12:12)
--- NOTE | 2020-08-03 12:15 | ED.PDOC ---
History of Present Illness - General Chief Complaint: Abdominal Pain Stated Complaint: upper abdominal pain,bad gallbladder Time Seen by Provider: 08/03/20 11:33 Information Source: patient Exam Limitations: no limitations - History of Present Illness Initial Comments: RUQ AND EPIGASTRIC PAIN, NAUSEA, GREEN DIARRHEA, ANOREXIA X 4 D SINCE EATING QUIGLEY. PT STATES SHE WAS DX'D WITH GALLBLADDER DISEASE 1 YR AGO. SURGEON ON [facility] INFORMED HER SHE WAS TOO HEAVY TO SAFELY PERFORM SURGERY (WEIGHED ALMOST 400 LBS). SHE HAS SUCCESSFULLY LOST 100 LB SINCE THEN THROUGH STRICT NUTRITIONAL EATING. 4 D AGO, SHE ATE QUIGLEY, WHICH IS AN EXCURSION FROM HER USUAL REGIMEN. THIS TRIGGERED RUQ PAIN, NAUSEA, DIARRHEA, ANOREXIA CONTINUOUSLY. SINCE THEN SHE HAS DONE LIQUID DIET. USUALLY A LIQUID DIET WILL GREYSON THE SX BUT IT DID NOT THIS TIME. HER CONCERN IS THAT THE PAIN HAS PERSISTED X 4 D. Abdominal Pain Onset Location: RUQ Pain Radiation: LUQ, epigastric Quality: moderate, sharpness, steady Timing/Duration: days, constant Improving Factors: nothing Worsening Factors: eating Associated Symptoms: nausea/vomiting Review of Systems - Review of Systems Constitutional: Denies: chills, fever EENTM: States: no symptoms reported Respiratory: Denies: cough, short of breath Cardiology: Denies: chest pain, palpitations Gastrointestinal/Abdominal: States: abdominal pain, diarrhea, nausea Genitourinary: States: no symptoms reported Musculoskeletal: States: no symptoms reported Skin: States: no symptoms reported Neurological: States: no symptoms reported Endocrine: States: no symptoms reported. Denies: unexplained weight gain, unexplained weight loss Hematologic/Lymphatic: States: no symptoms reported All other Systems: Reviewed and Negative Past Medical History (General) - Patient Medical History Hx Seizures: Yes - Epilepsy Hx Stroke: No Hx Dementia: No Hx Asthma: Yes Hx of COPD: Yes Hx Cardiac Disorders: Yes - Hx a flutter Hx Congestive Heart Failure: No Hx Pacemaker: No Hx Hypertension: Yes Hx Thyroid Disease: Yes Hx Diabetes: No Hx Gastroesophageal Reflux: No Hx Renal Disease: No Hx Cancer: No Hx of HIV: No Hx Hepatitis C: No Hx MRSA: No - Vaccination History Hx Tetanus, Diphtheria Vaccination: No Hx Influenza Vaccination: No Hx Pneumococcal Vaccination: No - Social History Hx Tobacco Use: Yes Hx Chewing Tobacco Use: No Hx Alcohol Use: No Hx Substance Use: No Hx Substance Use Treatment: No Hx Depression: Yes Hx Physical Abuse: No Hx Emotional Abuse: No Hx Suspected Abuse: No - Female History Patient : No Family Medical History - Family History Mother Family History: Unknown Living Status: Still Living Physical Exam - Physical Exam General Appearance: Alert, Obese, Well Nourished Eyes, Ears, Nose, Throat Exam: PERRL/EOMI, normal ENT inspection Neck: full range of motion, normal inspection Respiratory: lungs clear, normal breath sounds Cardiovascular/Chest: regular rate, rhythm, no JVD, no murmur Peripheral Pulses: No deficit Gastrointestinal/Abdominal: normal bowel sounds, soft, no organomegaly, no pulsatile mass, tenderness - RUQ > EIPGASTRIC > LUQ. LOWER ABD NTTP. Rectal Exam: deferred Back Exam: normal inspection, no CVA tenderness Extremity: normal range of motion, normal inspection Neurologic: alert, normal mood/affect Skin Exam: normal color, warm/dry Lymphatic: no adenopathy Progress - Results/Orders Results/Orders: SYSTOLIC RANGING FROM 90 - 120 THUS GIVING 1L NS BOLUS. LABS UNREMARKABLE: CBC, CMP, LIPASE. UA SHOWS UTI (NITRITE AND BACTERIA) - RX MACROBID. UCX SENT. U/S SHOWS CHOLELITHIASIS, C/W PT'S PAIN COMPLAINTS. WILL REFER TO GENERAL HINOJOSA RGERY. DR. LÓPEZ IS CABLE DRILLER TODAY, THUS WE WILL HAVE PT CALL HIS OFFICE. RX ZOFRAN AND ULTRAM TO HOLD HER OVER UNTIL SEES DR LÓPEZ. LOW FAT DIET. SAFE FOR OUTPT CARE. Departure - Departure Clinical Impression: RUQ abdominal pain, Nausea, Anorexia, Symptomatic cholelithiasis Diarrhea Qualifiers: Diarrhea type: unspecified type Qualified Code(s): R19.7 - Diarrhea, unspecified UTI (urinary tract infection) Qualifiers: Urinary tract infection type: acute cystitis Hematuria presence: without hematuria Qualified Code(s): N30.00 - Acute cystitis without hematuria Disposition: Discharge to Home or Self Care Condition: Good Departure Forms: ED Discharge - Pt. Copy, Patient Portal Self Enrollment Instructions: DI for Abdominal Pain-Adult, Gallstones (DC) Diet: low fat, low cholesterol Referrals: AUDREY WHITFIELD,STEPH Jefferson [Primary Care Provider] - 1-2 Weeks Prescriptions: Nitrofurantoin Monohydrate Mac [Macrobid] 100 mg PO BID 5 Days #10 capsule Acetaminophen W/ Codeine [Tylenol W/ CODEINE #3] 1 ea PO Q6H #15 Ondansetron Odt [Zofran ODT] 8 mg SL TID PRN #15 tab PRN Reason: Nausea Home Medications: Ambulatory Orders Albuterol Inhaler [Ventolin Hfa Inhaler] 1 puff INH PRN 09/16/17 Acetaminophen W/ Codeine [Tylenol W/ CODEINE #3] 1 ea PO Q6H #15 08/03/20 Levetiracetam 750 mg PO BID 08/03/20 Nitrofurantoin Monohydrate Mac [Macrobid] 100 mg PO BID 5 Days #10 capsule 08/03/20 Ondansetron Odt [Zofran ODT] 8 mg SL TID PRN #15 tab 08/03/20 Sertraline HCl [Sertraline Hydrochloride] 100 mg PO DAILY 08/03/20 Topiramate [Topamax] 200 mg PO BID 08/03/20 Additional Instructions: The nitrofurantoin antibiotics are for your urinary tract infection. Please call Dr. Guan's office today to make an appointment regarding your gall bladder. The gallstones are causing your pain and nausea. The other 2 medications are to take as needed for nausea (Zofran) or pain (Tylenol with codeine).
--- NOTE | 2020-08-03 13:10 | US ---
EXAM DESCRIPTION: Abdomen,Complete CLINICAL HISTORY: RUQ PAIN, NAUSEA, DIARRHEA, H/O CHOLECYSTITIS. COMPARISON: CT of the abdomen pelvis dated 16 April 2020 TECHNIQUE: Complete abdominal ultrasound FINDINGS: The liver is normal in appearance. There is no focal hepatic mass. Gallstones are identified in the gallbladder. The common bile duct is normal in caliber measuring 5.1 mm. Portions of the pancreas seen appear normal. The spleen is normal in appearance. The kidneys are normal in size, shape, and echotexture. The IVC and the proximal aorta are unremarkable. IMPRESSION: 1. Cholelithiasis Electronically signed by: Tomasz Fox MD 08/03/2020 1:09 PM [facility]
[2020-08-03 13:52] VITALS: BP 101/73; O2SAT 94
== END 2020-08-03 13:52 | disposition home or self-care (01) ==
LOC: ER 11:07
DX: N30.00 Acute cystitis without hematuria (principal); K80.20 Calculus of gallbladder without cholecystitis without obstruction; R19.7 Diarrhea, unspecified; F32.9 Major depressive disorder, single episode, unspecified; G40.909 Epilepsy, unspecified, not intractable, without status epilepticus; J44.9 Chronic obstructive pulmonary disease, unspecified; I10 Essential (primary) hypertension; E07.9 Disorder of thyroid, unspecified; Z87.891 Personal history of nicotine dependence
CPT/HCPCS: 36415; 76700; 80053; 81001; 83690; 85025; 87086; J1170; J2405; J7030

== ENCOUNTER → 2020-08-18 | Outpatient (CLI) | payer SELFPAY ==
--- NOTE | 2020-08-18 18:48 | RAD ---
EXAM: Chest,2 Views CLINICAL HISTORY: F/U PNEUMONIA COMPARISON STUDY: TECHNICAL: Posteroanterior (PA) and lateral views of the chest were performed. FINDINGS: No consolidations, effusions, or edema. The heart size is not enlarged. No acute osseous abnormality. IMPRESSION: NORMAL CHEST XRAY. 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
== END ==
LOC: RAD 08:58
PROVIDERS: ATTEND Nurse Practitioner Family
DX: J18.9 Pneumonia, unspecified organism (principal)

== ENCOUNTER 2020-08-20 05:42 | Day surgery (SDC) | payer SELFPAY ==
--- NOTE | 2020-08-10 16:18 | RAD ---
EXAM DESCRIPTION: Chest,2 Views CLINICAL HISTORY: preop COMPARISON: Previous chest x-ray October 23, 2019 TECHNIQUE: PA/lateral FINDINGS: Ill-defined increased density in the right perihilar and medial right lung base regions with possible increased density in the lingula and medial left lung base. Patchy infiltrate suggest pneumonia. CT could be performed for confirmation. Infiltrates are not prominent on the lateral view. Heart size is prominent with centrally increased pulmonary vascularity. No pleural effusion or pneumothorax. Lateral view shows intact sternum and T-spine. IMPRESSION: Patchy bilateral lung infiltrates. Prominent heart with centrally increased vascularity. Electronically signed by: Chris Camacho MD 08/10/2020 4:17 PM [facility]
[2020-08-20] MEDS ORDERED: LIDOCAINE 1% 10 ML VIAL INJ ONE (05:43)
[2020-08-20] MEDS ORDERED: DEXAMETHASONE INJ 10 MG/ML VIAL IV ONE (05:43)
[2020-08-20] MEDS ORDERED: PROPOFOL 200 MG/20 ML VIAL IV ONE (05:43)
[2020-08-20] MEDS ORDERED: MAGNESIUM SULFATE INJ 1 GM/2 ML VIAL IVPB ONE (05:43)
[2020-08-20] MEDS ORDERED: LACTATED RINGERS 1,000 ML ONE (06:46)
[2020-08-20] MEDS ORDERED: BUPIVACAINE 0.5% W/EPI 30 ML VIAL INJ ONE ×2 (11:03→12:20)
[2020-08-20] MEDS ORDERED: KETAMINE HCL 100 MG/ML VIAL ONE (11:15)
[2020-08-20] MEDS ORDERED: DEXMEDETOMIDINE HCL 200 MCG/2 ML INJ IV ONE (11:15)
[2020-08-20] MEDS ORDERED: SUGAMMADEX SODIUM 200 MG/2 ML VIAL IV ONE (11:15)
[2020-08-20] MEDS ORDERED: ROCURONIUM BROMIDE 10 MG/ML VIAL ONE (11:16)
[2020-08-20] MEDS ORDERED: MIDAZOLAM INJ 2 MG/2 ML VIAL ONE (11:16)
[2020-08-20] MEDS ORDERED: fentaNYL CITRATE INJ 50 MCG/ML 2 ML AMP ONE (11:16)
[2020-08-20] MEDS ORDERED: FAMOTIDINE INJ 10 MG/ML VIAL IV ONE (11:16)
[2020-08-20] MEDS ORDERED: LACTATED RINGERS 1,000 ML IVS ONE (11:40)
[2020-08-20 14:22] VITALS: BP 108/70; TEMP 96.7; O2SAT 98
--- NOTE | 2020-08-20 14:26 | OP ---
DATE OF PROCEDURE: 08/20/20 PREOPERATIVE DIAGNOSIS: 1. Symptomatic cholelithiasis. POSTOPERATIVE DIAGNOSIS: 1. Symptomatic cholelithiasis. PROCEDURE: 1. Laparoscopic cholecystectomy. SURGEON: Anson Guan MD. ANESTHESIA: General. FINDINGS: The anatomy was clearly visualized through the triangle of Calot. There is a moderate sized stone in the gallbladder. COMPLICATIONS: None. ESTIMATED BLOOD LOSS: Minimal. SPECIMEN: Gallbladder. PLAN: Discharge. INDICATION: As stated. PROCEDURE: General anesthesia was induced. The patient was prepped and draped in sterile fashion. Marcaine 0.5% with epinephrine was used at all incision sites. While maintaining upward traction, a danya was made near the base of the umbilicus. Veress needle was introduced. There was free flow of fluid into the peritoneal cavity which was insufflated to an appropriate level with CO2 gas. The 5 mm trocar was placed followed by the camera. There was no evidence of bleeding or bowel injury. The patient was positioned and subxiphoid and lateral ports were placed under direct visualization without difficulty. The gallbladder fundus was easily identified. It was grasped and retracted superiorly and laterally. The infundibulum was grasped. The fatty tissues around the duct and artery were dissected out. It was isolated and triply ligated as was a small posterior branch. The gallbladder was then routinely dissected off the fossa and removed in the EndoCatch bag. A small amount of bile had been spilled and was irrigated. All aspirate was clear. The clips were then examined. There was no bleeding or bile leakage. The subxiphoid fascia was then closed with 0 Vicryl using the suture passer. It was airtight and non-bleeding. The remaining trocars were removed. There was no bleeding from the trocar sites. The abdomen was desufflated. The wounds were irrigated and closed with Monocryl. Dressings were applied. The patient was awakened and taken to Recovery in stable condition to be discharged. #[id number] [facility] [place] [facility]
== END 2020-08-20 14:17 | disposition home or self-care (01) ==
LOC: AMB 05:42
PROVIDERS: ATTEND Surgery
DX: K80.10 Calculus of gallbladder with chronic cholecystitis without obstruction (principal); K74.60 Unspecified cirrhosis of liver; R18.8 Other ascites; I88.8 Other nonspecific lymphadenitis; I10 Essential (primary) hypertension; I25.10 Atherosclerotic heart disease of native coronary artery without angina pectoris; E11.9 Type 2 diabetes mellitus without complications; K21.9 Gastro-esophageal reflux disease without esophagitis; I48.91 Unspecified atrial fibrillation; E78.00 Pure hypercholesterolemia, unspecified; E03.9 Hypothyroidism, unspecified; Z86.73 Personal history of transient ischemic attack (TIA), and cerebral infarction without residual deficits; Z95.5 Presence of coronary angioplasty implant and graft; Z87.891 Personal history of nicotine dependence; Z79.84 Long term (current) use of oral hypoglycemic drugs; Z79.01 Long term (current) use of anticoagulants; Z79.899 Other long term (current) drug therapy
CPT/HCPCS: 00790; 36415; 47100; 47562; 71046; 80053; 81025; 85025; J1100; J2250; J3010; J3475; J3490; J7120